=== PATIENT | male | born 1950 | race Caucasian/White ===

== ENCOUNTER 2023-05-06 22:05 | Emergency (ER) | payer OTHER ==
[~2023-05-06] VITALS: Ht 180.3 cm; Wt 93.0 kg
[2023-05-06] MEDS ORDERED: NORVASC5 MG PO (22:16)
[2023-05-06] MEDS ORDERED: [UNRECOGNIZED DRUG - OTHER] (22:17)
[2023-05-06] MEDS ORDERED: [UNRECOGNIZED DRUG - OTHER] (22:17)
== END 2023-05-07 01:15 ==
LOC: ER 22:05
DX: I10 Essential (primary) hypertension (principal)